=== PATIENT | male | born 1950 ===

== ENCOUNTER 2017-06-14 12:15 | Emergency (ER) | payer BC ==
--- NOTE | 2017-06-14 13:01 | EDM.PDOC ---
ED HPI GENERAL MEDICAL PROBLEM - General Chief Complaint: Lower Extremity Injury/Pain Stated Complaint: LT ANKLE HURTS Time Seen by Provider: 06/14/17 12:52 - History of Present Illness INITIAL COMMENTS - FREE TEXT/NARRATIVE: HISTORY AND PHYSICAL: History of present illness: Patient is 66-year-old white male presents with a concern of acute left ankle injury has occurred when he rolled his ankle after being kicked by a cow he denies any other trauma or concern Review of systems: As per history of present illness and below otherwise all systems reviewed and negative. Past medical history: As per history of present illness and as reviewed below otherwise noncontributory. Surgical history: As per history of present illness and as reviewed below otherwise noncontributory. Social history: No reported history of drug or alcohol abuse. Family history: As per history of present illness and as reviewed below otherwise noncontributory. Physical exam: HEENT: Atraumatic, normocephalic, pupils reactive, negative for conjunctival pallor or scleral icterus, mucous membranes moist, throat clear, neck supple, nontender, trachea midline. Lungs: Clear to auscultation, breath sounds equal bilaterally, chest nontender. Heart: S1S2, regular, negative for clicks, rubs, or JVD. Abdomen: Soft, nondistended, nontender. Negative for masses or hepatosplenomegaly. Negative for costovertebral tenderness. Pelvis: Stable nontender. Genitourinary: Deferred. Rectal: Deferred. Extremities: Patient has tenderness and swelling in region of his lateral malleolus on the left skin Achilles tendon is intact crepitation or proximal fibula tenderness seem S neurovascular is unremarkable Neuro: Awake, alert, oriented. Cranial nerves II through XII unremarkable. Cerebellum unremarkable. Motor and sensory unremarkable throughout. Exam nonfocal. Diagnostics: X-ray left ankle Therapeutics: To be determined Impression: #1 acute left ankle injury Definitive disposition and diagnosis as appropriate pending reevaluation and review of above. Left Ankle Pain Score (Numeric/FACES): 7 Past Medical History - Past Health History Medical/Surgical History: Denies Medical/Surgical History - Infectious Disease History Infectious Disease History: Reports: Chicken Pox, Measles, Mumps Social & Family History - Family History Family Medical History: Noncontributory - Tobacco Use Smoking Status *Q: Never Smoker - Caffeine Use Caffeine Use: Reports: Coffee - Recreational Drug Use Recreational Drug Use: No Review of Systems - Review of Systems Review Of Systems: ROS reveals no pertinent complaints other than HPI. ED EXAM, GENERAL - Physical Exam Exam: See Below (See dictation) Course - Vital Signs Last Recorded V/S: Last Vital Signs Temp 36.8 C 06/14/17 12:40 Pulse 70 06/14/17 12:40 Resp 18 06/14/17 12:40 BP 143/85 H 06/14/17 12:40 Pulse Ox 98 06/14/17 12:40 - Orders/Labs/Meds Orders: Active Orders 24 hr Category Date Time Status Ankle Min 3V Lt [CR] Stat Exams 06/14/17 12:55 Taken Departure - Departure Time of Disposition: 13:45 Disposition: Home, Self-Care 01 Condition: Good Clinical Impression: Ankle fracture - Discharge Information Referrals: PCP,None [Primary Care Provider] - Forms: ED Department Discharge Additional Instructions: The following information is given to patients seen in the emergency department who are being discharged to home. This information is to outline your options for follow-up care. We provide all patients seen in our emergency department with a follow-up referral. The need for follow-up, as well as the timing and circumstances, are variable depending upon the specifics of your emergency department visit. If you don't have a primary care physician on staff, we will provide you with a referral. We always advise you to contact your personal physician following an emergency department visit to inform them of the circumstance of the visit and for follow-up with them and/or the need for any referrals to a consulting specialist. The emergency department will also refer you to a specialist when appropriate. This referral assures that you have the opportunity for followup care with a specialist. All of these measure are taken in an effort to provide you with optimal care, which includes your followup. Under all circumstances we always encourage you to contact your private physician who remains a resource for coordinating your care. When calling for followup care, please make the office aware that this follow-up is from your recent emergency room visit. If for any reason you are refused follow-up, please contact the [facility] emergency department at and asked to speak to the emergency department charge nurse. [facility] Professional Building [address] [place] [address], [address] [place] [address] Posterior mold crutches hydrocodone as prescribed follow-up orthopedic clinic above call to schedule appointment return as needed as discussed - My Orders Last 24 Hours: My Active Orders 06/14/17 12:55 Ankle Min 3V Lt [CR] Stat - Assessment/Plan Last 24 Hours: My Active Orders 06/14/17 12:55 Ankle Min 3V Lt [CR] Stat
--- NOTE | 2017-06-16 14:45 | CR ---
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 Site : 1950 Study: XRay Extremity Left ankle [id number]/24/2018 1:19:33 PM Ordering Physician: Ct Hernandez Final Report: INDICATION: cow kicked PT in knee/ankle HISTORY: Injury. COMPARISON: None. TECHNIQUE: Left ankle, 3 portable views. FINDINGS: There is soft tissue swelling about the lateral malleolus, with an oblique lucency, compatible with a fracture. Fragmentation about the left medial malleolus does not appear acute, and there is no associated soft tissue swelling. The tibial plafond and talar dome are intact. No lytic or blastic bone lesion is seen. Subtalar and talonavicular joints are normal. Boehler`s angle is preserved. IMPRESSION: Acute, nondisplaced, oblique fracture of the left lateral malleolus, with overlying soft tissue swelling. Dictated by Akbar Kuhn MD @ 06/14/2017 1:23:24 PM Dictated by: Akbar Kuhn MD @ 06/14/2017 13:23:32 (Electronic Signature) Report Signed by Proxy. NINA
== END 2017-06-14 14:24 | disposition home or self-care (01) ==
LOC: MW.ED 12:15
DX: S82.65XA Nondisplaced fracture of lateral malleolus of left fibula, initial encounter for closed fracture (principal); W55.22XA Struck by cow, initial encounter
CPT/HCPCS: 73610-26-LT; 73610-LT; 99283